=== PATIENT | female | born 1985 | race Caucasian/White ===

== ENCOUNTER 2019-01-11 08:52 | Outpatient (CLI) | payer BC, SELFPAY ==
[2019-01-11 10:26] LABS: HCG Quant, Pregnancy 327 mIU/mL (1-3)
== END 2019-01-11 09:12 ==
PROVIDERS: PCP Neuromusculoskeletal Medicine & OMM; Visit Provider Advanced Practice Midwife
DX: O20.0 Threatened abortion (principal); Z01.84 Encounter for antibody response examination
CPT/HCPCS: 36415; 86850; 86900; 86901; 84702

== ENCOUNTER 2019-01-17 10:06 | Outpatient (CLI) | payer BC, SELFPAY ==
[2019-01-17 11:32] LABS: HCG Quant, Pregnancy 1215 mIU/mL (1-3)
== END 2019-01-17 10:26 ==
PROVIDERS: PCP Neuromusculoskeletal Medicine & OMM; Visit Provider Obstetrics & Gynecology
DX: O20.0 Threatened abortion (principal)
CPT/HCPCS: 36415; 84702

== ENCOUNTER 2019-01-19 00:38 | Outpatient (CLI) | payer BC, SELFPAY ==
--- NOTE | 2019-01-19 12:29 | DI.US_ITS ---
SYMPTOMS/DIAGNOSIS: POSITIVE HCG, POSITIVE TEST, BLEEDING, NOW NOTHING IN UTERUS, THREATENED , Z32.01. O20.0 OBSTETRICAL ULTRASOUND: Many abnormalities cannot be diagnosed. A normal exam does not exclude a congenital anomaly. HISTORY: Date of exam: 01/19/19 LMP: 12/03/18 EDC by LMP: 09/09/19 Previous study: [facility] 6+5 wks Range: 5+5 to 7+5 EDC by prior us: Findings: No IUP Prior surgery/: BIOMETRY: PELVIC MEASUREMENTS: CRL: mm wks Uterus: 8.7 x 3.9 x 4.9 cm Yolk sac: mm wks Gest sac: mm wks Rt Ovary: 2.9 x 2.4 x 2.2 cm BPD: mm wks HC: mm wks Lt Ovary: 3.8 x 1.9 x 1.3 cm AC: mm wks FL: mm wks Comments: 1.7 x 1.6 x 1.7 cm right ovarian cyst, ? corpus luteum Composite Age (US): wks EDC by US: Heart Rate: BPM Amniotic Fluid: [place] Normal Polyhydramnios Movement noted: Yes No Comments: No evidence of intra/extra-uterine . Mild amount of fluid within endometrium. The uterus measures 8.7 cm long x 3.9 cm AP x 4.9 cm transverse. There is a very small amount of fluid within the endometrial canal. No focal fluid collection is seen to suggest a gestational sac at this time. The left ovary measures 3.8 x 1.9 x 1.3 cm. There is normal blood flow. No evidence of torsion. No evidence of a left ovarian mass. The right ovary measures 2.9 x 2.4 x 2.2 cm. There is a 1.7 x 1.6 x 1.7 cm simple cyst on the right ovary. No internal solid component or blood flow is seen in the cyst. There is normal blood flow to the right ovary. No evidence of torsion. No free pelvic fluid, adnexal mass or hydronephrosis is identified. IMPRESSION: No definite evidence of an intrauterine gestation. Follow-up beta- hCG levels are recommended. If clinically appropriate, repeat obstetrical ultrasound may be obtained.
== END 2019-01-19 00:58 ==
PROVIDERS: PCP Neuromusculoskeletal Medicine & OMM; Visit Provider Obstetrics & Gynecology Gynecology
DX: O20.0 Threatened abortion (principal); Z32.01 Encounter for pregnancy test, result positive; N83.291 Other ovarian cyst, right side
CPT/HCPCS: 76801

== ENCOUNTER 2019-01-20 13:48 | Outpatient (CLI) | payer BC, SELFPAY ==
[2019-01-20 15:36] LABS: HCG Quant, Pregnancy 1916 mIU/mL (1-3)
== END 2019-01-20 14:08 ==
PROVIDERS: PCP Neuromusculoskeletal Medicine & OMM; Visit Provider Obstetrics & Gynecology
DX: O20.0 Threatened abortion (principal)
CPT/HCPCS: 36415; 84702

== ENCOUNTER 2019-01-20 13:57 | Outpatient (CLI) | payer BC, SELFPAY | END 2019-01-20 14:17 | PROVIDERS: PCP Neuromusculoskeletal Medicine & OMM; Visit Provider Obstetrics & Gynecology Gynecology | DX: Z01.818 Encounter for other preprocedural examination (principal) ==

== ENCOUNTER 2019-01-21 06:21 | Day surgery (SDC) | payer BC, SELFPAY ==
[2019-01-20 14:07] VITALS: BP 104/69; PULSE 74; RESP 18; TEMP 37; O2SAT 99
[2019-01-21] VITALS (7 sets, daily range): BP systolic 99–114; BP diastolic 50–66; PULSE 67–81; RESP 14–22; TEMP 35.8–36.5; O2SAT 95–100
[2019-01-21] MEDS: Lactated Ringers 1,000 ML 80 ML IV (07:06)
[2019-01-21 07:14] LABS: HCT 39.6 % (36.0-46.0); HGB 12.7 g/dL (12.0-15.5); Mean Corp. HGB Concentration 32.1 g/dL (32.0-36.0); Mean Corpuscular Hemoglobin 28.7 pg (27.0-33.0); Mean Corpuscular Volume 89.6 fL (80-95); Platelet Count 178 x1000/uL (130-400); RBC 4.42 m/cumm (4.00-5.20); RBC Distribution Width 12.2 % (11.7-14.6); White Blood Cell Count 5.79 k/cumm (4.4-10.8)
[2019-01-21] MEDS: Bupivacaine 0.25% Pres-Free 30 ML VIAL (07:55)
--- NOTE | 2019-01-21 08:00 | POCSPONT_PTH ---
PATIENT: NGUYEN SANDHU LOC: [facility] U#:[id number] AGE/SX: 33/F ROOM: RE01/21/[address]: Ximena Rose : 1985 BED: DIS: 01/21/2019 SPEC #: [id number] RECD: 01/21/19 12:53 STATUS: FARIDA RERasta #: [id number] ZIYAD: 01/21/19 08:[address]: Ximena Rose DEPT: Surgical Specimen RECD BY: Thao Lugo ENTERED: 01/21/19 12:55 SP TYPE: POCSPONT OT DR: Gaetano Welch Tissues: 1 - ,SPONTANEOUS Procedures: GROSS AND MICRO LEVEL 4 Comments: [id number] (PLEASE GUTIERREZ)
[2019-01-21] MEDS: Silver Nitrate Stick 1 EACH (08:02)
[2019-01-21] MEDS: fentaNYL 100 MCG/2 ML VIAL IVP ×2 (08:30→08:40)
--- NOTE | 2019-01-21 08:31 | W.PM.DSUDISC ---
Discharge Plan Disposition Patient Disposition: HOME Condition: Good Discharge Details Reason For Visit: ASIM Attending Provider: Ximena Rose Primary Care Provider: Gaetano Welch [place] Meds and New Rx's Prescriptions: No Action doxycycline hyclate 100 mg capsule 100 mg PO DAILY Qty: 3 RF: 0 Five-Thirty 1.5 billion cell capsule 1 cap PO DAILY RF: 0 vitamin [id number] acid 1,000-400 mcg tablet, sublingual 1 tab SL DAILY RF: 0 mesalamine [Lialda] 1.2 GM tablet,delayed release (DR/EC) 2 tab PO BID RF: 0 Discharge Instructions Stand Alone Forms: DSU Post Gynecology Surgery Activity:: Activity as Tolerated Diet:: As Tolerated Discharge Orders Discharge Orders: Discharge Order (Routine); Ordered 01/21/19 Ordered By: Ximena Rose
--- NOTE | 2019-01-21 09:38 | W.PM.OP ---
Date of service: 01/21/19 Time of Service: 09:38 Operative Note DATE OF PROCEDURE: 01/21/19 PRE-OP DIAGNOSIS: Incomplete at 7 weeks POST-OP DIAGNOSIS: same PROCEDURE: Cervical dilatation and suction evacuation of uterine contents ANESTHESIA: MAC (With laryngeal mask anesthesia) ESTIMATED BLOOD LOSS: 5 COMPLICATIONS: None Patient was transported to: PACU Patient's condition: stable Indications: 33-year-old female with EGA 7w1d by LMP 12/03/18 who developed episode of uterine bleeding ~ 1 week ago. Serial hCGs have demonstrated an abnormal rise this past week. No IUP, no ectopic noted on OB u/s 01/19/19. Pt was counseled regarding options for care and requested that a D&C be performed. Findings: Uterus sounded to 9 cm. Scant amount of tissue pain from the uterine cavity. Procedure Description: Patient was taken the operating room where she was placed in the dorsal supine position and laryngeal mask anesthesia was administered without difficulty. She was then placed in the dorsal lithotomy position in yellowfin stirrups prepped and draped in the usual sterile fashion. A surgical timeout was performed. SCDs were in place. [place] speculum was placed in the vagina the anterior lip of the cervix was infiltrated with quarter percent Marcaine without epinephrine single-tooth tenaculum was applied to the anterior lip of the cervix. Paracervical block was performed using quarter percent Marcaine with approximately 5 cc injected into the 4 and 8:00 cervical vaginal interface respectively. Cervix was then sequentially dilated to a maximum of 20 Foster and a 8 mm curved suction cannula was inserted to the uterine cavity attached to suction in all 4 quadrants of the uterine cavity were sequentially suction curetted. After completion of the suction curettage a banjo curette was then introduced into the uterine cavity and all 4 quadrants of the uterine cavity where curetted with a gritty texture obtained and minimal tissue returned. Final pass with the suction cannula was performed with minimal tissue returned. Tenaculum was removed from the anterior lip of the cervix tenaculum site was treated with silver nitrate. Speculum was removed and the patient was then placed in the dorsal supine position awakened extubated and transported to recovery area in stable condition all sponge lap and needle counts were correct x2.
== END 2019-01-21 10:27 | disposition home or self-care (01) ==
PROVIDERS: PCP Neuromusculoskeletal Medicine & OMM; Visit Provider Obstetrics & Gynecology Gynecology
PROC: (CPT 59841; principal; 2019-01-21 07:30)
DX: O03.4 Incomplete spontaneous abortion without complication (principal)
CPT/HCPCS: 59812; 36415; 85027; 86850; 86900; 86901; 88305; J1100; J1885; J2250; J2405; J3010

== ENCOUNTER 2019-01-31 09:25 | Outpatient (CLI) | payer BC, SELFPAY ==
[2019-01-31 10:39] LABS: HCG Quant, Pregnancy 10 mIU/mL (1-3)
== END 2019-01-31 09:45 ==
PROVIDERS: Obstetrics & Gynecology; PCP Neuromusculoskeletal Medicine & OMM; Visit Provider Obstetrics & Gynecology Gynecology
DX: Z32.01 Encounter for pregnancy test, result positive (principal)
CPT/HCPCS: 84702

== ENCOUNTER 2019-11-12 12:53 | Outpatient (REF) | payer BC, SELFPAY ==
--- NOTE | 2019-11-12 11:30 | PAPFT_PTH ---
PATIENT: NGUYEN SANDHU LOC: [facility] U#:[id number] AGE/SX: 33/F ROOM: RE11/12/[address]: Rogelio Tomlinson MD : 1985 BED: DIS: 11/12/2019 SPEC #: [id number] RECD: 11/12/19 13:04 STATUS: FARIDA ELIZABETH #: [id number] ZIYAD: 11/12/19 11:[address]: Rogelio Tomlinson DEPT: [facility] Cytology RECD BY: Thao Lugo ENTERED: 11/12/19 13:04 SP TYPE: PAPFT OTHR DR: Gaetano Welch Tissues: 1 - CX/ENDOCX FOR PAP SMEARS Procedures: PAP THIN PREP/UVM Screening HPV DNA PROBE Comments: [id number]
== END 2019-11-12 13:13 ==
LOC: LBN 12:53
PROVIDERS: PCP Neuromusculoskeletal Medicine & OMM; Visit Provider Obstetrics & Gynecology
DX: Z12.4 Encounter for screening for malignant neoplasm of cervix (principal); Z11.51 Encounter for screening for human papillomavirus (HPV)
CPT/HCPCS: 88142; 87624

== ENCOUNTER 2020-05-14 15:20 | Emergency (ER) | payer BC, SELFPAY ==
[2020-05-14] VITALS (23 sets, daily range): BP systolic 89–110; BP diastolic 60–76; PULSE 50–71; RESP 13–27; TEMP 36.4; O2SAT 97–100
--- NOTE | 2020-05-14 15:15 | RT.EKG_ITS ---
APPROVED REPORT Exam: Resting ECG Patient Location: E HR:64 bpm ECG Measurements Heart Rate 64 AXIS [place] 123 P 3 QRSd 81 QRS 63 QT 410 T 35 QTc 424 Conclusion Sinus rhythm...normal P axis, V-rate 60- 99 Probable inferior infarct, old...Q>35mS, II III aVF Anterolateral Q wave, probably normal for age...Q >35mS, age<31 male, <40 female. Q waves in II, III, aVF, V3-6. Suspect early replorization. No STEMI.
--- NOTE | 2020-05-14 15:36 | ED.GENADUL_ITS ---
Discharge Plan Disposition Patient Disposition: HOME Condition: Stable Discharge Details Chief Complaint: Chest Pain Clinical Impression: Chest pain Primary Care Provider: Gaetano Welch ED Provider: Amanda Kendall Home Meds and New Rx's Prescriptions: No Action Mirena 20 mcg/24 hours (5 yrs) 52 mg Intrauterine Device INTRAUTERINE RF: 0 Discharge Instructions Instructions: Chest Pain (ED) Additional Instructions: You have elected to leave the emergency department prior to the fall recommended evaluation. May return to emergency department anytime if you change your mind. Please return immediately to the emergency department if you develop any new or worsening symptoms, if your condition does not improve as expected, or if you become otherwise concerned. It is extremely important that you call soon as possible to make an appointment to be seen in follow-up for this visit by your primary care doctor. Referrals: Gaetano Welch [Primary Care Provider] - Discharge Data Discharge Date/Time-TO BE ENTERED AT DEPARTURE: 05/14/20 17:59 Medical Decision Making <Dianelys Burns - Last Filed: 05/17/20 08:22> 34-year-old female presents with left-sided chest pressure and pain which radiates into her back and left arm. This lasted less than 10 minutes [place]. Had a similar episode approximately 2 weeks ago which did not last very long. Pain is reproducible with palpation, gets worse with deep breathing, and movement. I do suspect at this time that this is noncardiac type pain but will rule out cardiac origin. EKG was reviewed by Federica Vincent MD ER attending, please see her official report and read. Informed by RN the patient's blood pressure is 103 systolic will hold off on nitroglycerin at this time. Patient given 324 mg of chewable aspirin. Work-up ordered including EKG, CBC, CMP, serial troponins, urine test, chest CT PE protocol. This time expected disposition is discharge home pending negative work-up. There is to be handed over to oncoming provider Amanda Kendall MD pending labs and PT chest, discussed case in details with her, verbalized understanding. At the time of this dictation patient was hemodynamically stable. <Amanda Kendall MD - Last Filed: 05/14/20 23:01> Patient signed out to me by Esther Burns at time of shift change with CT pending. Katie Briggs is a 44-year-old woman with a history of ulcerative colitis in remission and off medication for 1 year who presented to the emergency department for sharp chest pain. Patient reports that she was driving to a playground with her son, when she felt onset of sharp pain just lateral to her left sternal border. Patient reports that pain worsened over time, radiated to her left shoulder. She also began to feel some tingling in her left hand. Patient reports that pain is worse with internal/external rotation of the left shoulder. Nonexertional, nonpleuritic. Patient denies history of similar pain. Patient reports that pain improved significantly upon arriving in the emergency department, she now classifies it as 2/10. Patient reports that she has not noticed any symptoms during exertion recently. She denies any other pain, fever, shortness of breath, cough, vomiting, diarrhea, numbness, localized weakness. Previously in her usual state of health. No recent illness, has been eating and drinking as usual. No first-degree relatives with coronary artery disease. Physical exam is benign, normal work of breathing, regular rate and rhythm. Concern for likely musculoskeletal pain, possible pulmonary embolism. Doubt acute coronary syndrome. Exam/history is not consistent with acute aortic pathology, sepsis. Awaiting labs, CT chest to rule out PE. CT negative. Initial troponin okay. EKG shows normal sinus rhythm, no STEMI, nondiagnostic EKG. Patient reporting no chest pain unless she moves her left shoulder when she again has sharp pain at the left sternal border. Denies any other pain. Plan for repeat troponin, repeat EKG. Patient initially amenable to repeat EKG and repeat troponin, however she then stated to me that her son is being cared for by a neighbor and she would like to leave as soon as possible. I did offer for patient to have EKG immediately and/or troponin draw at 3 hours with subsequent discharge and call back for positive troponin. Patient declines both EKG and wait for troponin draw. I had a lengthy discussion with the patient regarding risks of leaving without full evaluation including or permanent disability, patient verbalized understanding and continued to refuse further evaluation. Outpatient stress test ordered. I had a lengthy discussion with Patient regarding return to emergency department precautions, home care, that she may return to the emergency department anytime should she change her mind, and importance of outpatient follow-up. Pt verbalizes understanding of the plan and is amenable. Patient discharged to home with clear plan for outpatient follow-up. All questions were answered. Disposition decision was made weighing the risks and benefits of hospitalization versus outpatient treatment, the risk for further decompensation, and the patient's wishes. Just prior to discharge, hypotensive blood pressure 89/76 recorded, I discussed this with nurse who stated that blood pressure cuff was not on the patient at that time, normal blood pressure was subsequently recorded with cuff on patient. Patient left the emergency department without further incident. Medical Records Medical records reviewed: Yes I reviewed the patient's medical records. Imaging Data Radiologic Study: Attestation: I personally reviewed and interpreted this imaging study as follows: Radiologist's impression: Exam(s) a CT:CT chest PE CTA EXAM: CT CHEST PE CTA CLINICAL HISTORY: Chest pain, R/O PE. TECHNIQUE: Imaging Protocol: Axial CT angiography was performed with multi- slice acquisition and multi-planar and/or 3D reconstructions. CONTRAST MATERIAL: Intravenous: Omnipaque 350 Contrast volume:structured data in ml COMPARISON: CT ABD PELVIS WITH CONTRAST from 02/06/2018 FINDINGS: CT angiography of the chest was performed with intravenous infusion of 100 cc of Omnipaque 350. The lungs are clear. No pleural effusion. Tracheobronchial tree appears intact. No evidence of pulmonary embolic disease. Thoracic aorta is of normal, no thoracic aortic aneurysm or dissection, major branch vessels appear intact. No mediastinal or hilar adenopathy. Images obtained through the upper abdomen show unremarkable appearance of the visualized portions of the liver, spleen, pancreas, adrenals, and kidneys. IMPRESSION: Negative CT angiogram of the chest. No evidence of pulmonary embolic disease. Lab Data Lab results reviewed: Yes I reviewed the patient's lab results. Labs: Laboratory Tests Range/Units 05/14/20 05/14/20 05/14/20 15:34 15:40 15:40 WBC (4.4-10.8) 10^3/uL 6.80 RBC (3.93-5.22) 10^6/uL 4.61 Hgb (11.2-15.7) g/dL 13.7 Hct (36.0-46.0) % 40.7 MCV (80-95) fL 88.3 MCH (27.0-33.0) pg 29.7 MCHC (32.0-36.0) % 33.7 RDW (11.7-14.6) % 11.9 Plt Count (130-400) 10^3/uL 180 MPV (8.0-11.0) fL 11.5 H Immature Gran % 0.1 Neutrophils % 50.2 Lymphocytes % 40.0 Monocytes % 6.6 Eosinophils % 2.5 Basophils % 0.6 Nucleated RBC % % 0 Absolute Neutrophils (1.2-6.7) 10^3/uL 3.41 Absolute Lymphocytes (1.2-3.4) 10^3/uL 2.72 Absolute Monocytes (0.1-0.8) 10^3/uL 0.45 Absolute Eosinophils (0.0-0.7) 10^3/uL 0.17 Absolute Basophils (0.0-0.2) 10^3/uL 0.04 D-Dimer Cancelled Sodium (136-145) mmol/L 139 Potassium (3.5-5.1) mmol/L 3.9 Chloride (98-107) mmol/L 104 Carbon Dioxide (21.0-32.0) mmol/L 28.0 Anion Gap (3-11) mmol/L 7.0 BUN (7-18) mg/dL 13 Creatinine (0.55-1.02) mg/dL 0.84 Estimated GFR/1.73 m2 (mL/min/1.73m2) >= 60.00 Glucose (74-106) mg/dL 91 Calcium (8.5-10.1) mg/dL 9.1 Magnesium (1.8-2.4) mg/dL 1.9 Total Bilirubin (0.2-1.0) mg/dL 0.6 AST (15-37) U/L 14 L ALT (14-59) U/L 22 Alkaline Phosphatase (46-116) U/L 59 Troponin I (<0.06) ng/mL < 0.05 Total Protein (6.4-8.2) g/dL 7.7 Albumin (3.4-5.0) g/dL 4.1 Range/Units 05/14/20 18:34 WBC (4.4-10.8) 10^3/uL RBC (3.93-5.22) 10^6/uL Hgb (11.2-15.7) g/dL Hct (36.0-46.0) % MCV (80-95) fL MCH (27.0-33.0) pg MCHC (32.0-36.0) % RDW (11.7-14.6) % Plt Count (130-400) 10^3/uL MPV (8.0-11.0) fL Immature Gran % Neutrophils % Lymphocytes % Monocytes % Eosinophils % Basophils % Nucleated RBC % % Absolute Neutrophils (1.2-6.7) 10^3/uL Absolute Lymphocytes (1.2-3.4) 10^3/uL Absolute Monocytes (0.1-0.8) 10^3/uL Absolute Eosinophils (0.0-0.7) 10^3/uL Absolute Basophils (0.0-0.2) 10^3/uL D-Dimer Sodium (136-145) mmol/L Potassium (3.5-5.1) mmol/L Chloride (98-107) mmol/L Carbon Dioxide (21.0-32.0) mmol/L Anion Gap (3-11) mmol/L BUN (7-18) mg/dL Creatinine (0.55-1.02) mg/dL Estimated GFR/1.73 m2 (mL/min/1.73m2) Glucose (74-106) mg/dL Calcium (8.5-10.1) mg/dL Magnesium (1.8-2.4) mg/dL Total Bilirubin (0.2-1.0) mg/dL AST (15-37) U/L ALT (14-59) U/L Alkaline Phosphatase (46-116) U/L Troponin I (<0.06) ng/mL Cancelled Total Protein (6.4-8.2) g/dL Albumin (3.4-5.0) g/dL HPI <Dianelys Burns - Last Filed: 05/17/20 08:22> General Mode of arrival: ambulatory . Date/Time Provider Initiated Documentation: 05/14/20 15:21 . Limitations to Documentation: no limitations . Information obtained by: patient . HPI Narrative: 34-year-old female presents the ER with left-sided chest pain which radiates down to her left arm. She reports was at the park with her son at approximately 1400 when began with this left-sided chest pressure that she reports is heaviness radiating down into her arm and had pressure to her middle finger. Also radiates into her back. She reports that this sensation caused her to have to sit down. This lasted for approximately less than 10 minutes. Upon initial exam she rates the sensation a 2 or 3 out of 10. Pain gets worse with deep breathing. Is reproducible with palpation. Denies nausea, diaphoresis, abdominal pain or diarrhea denies any fever or chills. Denies cough. She does not have any significant cardiac history. She is on the Mirena IUD for control. She has never been a smoker, does drink 1-2 drinks of alcohol a week. No significant family cardiac history. Related Data Home Medications Medication Instructions Recorded Confirmed levonorgestrel [Mirena] INTRAUTERINE 05/14/20 Allergies Allergy/AdvReac Type Severity Reaction Status Date / Time codeine Allergy Severe Hives Verified 05/14/20 15:35 General Stated Complaint: Chest Pain ALEXUS: 2 Review of Systems <Dianelys Burns - Last Filed: 05/17/20 08:22> Narrative: Constitutional: Negative for weight loss, alert and oriented, well groomed, normal body habitus, appears comfortable. HEENT: Denies trauma, headaches, blurry vision, nasal discharge, sore throat, trouble swallowing. Chest: Denies palpitations, irregular rhythm, hypertension. Positive left- sided chest pressure which radiates down her left arm which began approximately 1400. Respiratory: Denies Shortness of breath, cough, hemoptysis. GI: Denies abdominal pain, nausea, vomiting, diarrhea, constipation. : Denies dysuria, hematuria, flank pain, rectal bleeding. Neuro: Denies dizziness, blurry vision, weakness, syncope, headache or facial numbness. Hematologic: Denies easy bruising, intolerance to heat or cold, hair loss. PFSH <Dianelys Burns - Last Filed: 05/17/20 08:22> Medical History Positive test (Acute) Threatened (Acute) LMP 12/03/18. + UPT 01/05/19. Heavy bleeding 01/11-01/13. hCG 01/1159=098, 01/1307=847. 01/14/19 Thickened ES. No IUP, nl adnexa. Plan repeat hCG 01/16 and u/s week of 01/18 with f/u. Ulcerative colitis (Acute 09/27/14) Surgical History History of colonoscopy (Chronic) Reduction mammoplasty (Resolved ~2006) Family History Father Heart disease mgf Diabetes Social History Smoking/Tobacco Use Status: Never Alcohol Intake: current Alcohol Intake frequency: a few times a week Alcohol type: wine Substance use type: does not use Details: September 2018 Household members: spouse, children and other Details: Mala Reyes, son 2.5yo Number of Children: 1 Do you feel safe at home: Yes Do you feel safe in your relationship?: Yes History History 2 Para 1 Hx # Term Pregnancies 1 Multiple births Hx # Pregnancies Ectopic pregnancies AB induced Hx Number of Living Children 1 AB spontaneous Exam <Dianelys Burns - Last Filed: 05/17/20 08:22> Narrative Exam Narrative: Constitutional: Alert and oriented x3. Appears stated age. Normal body habitus. Head: Normocephalic, no trauma. Eyes: Pupils PERRLA, Red reflex noted, EOM's intact. Eyelids symmetrical without lesions, discharge, or swelling. ENT: Bilateral TM's WNL, External ear normal to inspection, no mastoid TTP, swelling, or erythema, Nasal turbinates WNL, no nasal discharge. Normal dentition, Posterior pharynx WNL, no exudate. Chest: RRR, Normal S1, S2, distal pulses intact. Chest pain is reproducible with palpation to left midsternal. Chest pain gets worse with deep breathing. Resp: Lungs clear to auscultation bilaterally, no wheezes, rales, or rhonchi. Musculoskeletal: Normal gait, 5/5 strength to all four extremities. Skin: No suspicious rashes or lesions. Capillary refill less than 2 sec. Neurologic: Cranial nerves II-XII intact. Alert and oriented x 3. DTR's intact. Hematologic/Lymphatic: No ecchymosis, no lymphadenopathy. Course <Dianelys Burns - Last Filed: 05/17/20 08:22> Vital Signs Vital signs: Vital Signs Temperature 36.4 C L 05/14/20 15:26 Pulse 68 05/14/20 15:26 Respiratory Rate 16 05/14/20 15:26 Blood Pressure 103/61 05/14/20 15:26 Pulse Oximetry 97 05/14/20 15:26 Temperature 36.4 C L 05/14/20 15:26 Temperature Source Skin 05/14/20 15:26 Pulse 68 05/14/20 15:26 Respiratory Rate 16 05/14/20 15:26 Respiratory Effort Non-Labored 05/14/20 15:26 Blood Pressure 103/61 05/14/20 15:26 Blood Pressure Position Supine 05/14/20 15:26 Pulse Oximetry 97 05/14/20 15:26 Oxygen Delivery Method Room Air 05/14/20 15:26 Oxygen Flow Rate 0 05/14/20 15:26 Pain Level 3 05/14/20 15:26 Sign Out <Dianelys Burns - Last Filed: 05/17/20 08:22> Sign Out Data: Sign Out Comment: Pending labs and CT Chest Last updated by Dianelys Burns at 05/14/20 16:03
[2020-05-14 15:50] LABS: Abs Immature Grans 0.01 10^3/uL (0.0-0.06); Absolute Basophil Count 0.04 10^3/uL (0.0-0.2); Absolute Eosinophil Count 0.17 10^3/uL (0.0-0.7); Absolute Lymphocyte Count 2.72 10^3/uL (1.2-3.4); Absolute Monocyte Count 0.45 10^3/uL (0.1-0.8); Absolute Neutrophil Count 3.41 10^3/uL (1.2-6.7); Basophils % 0.6; Eosinophils % 2.5; HCT 40.7 % (36.0-46.0); HGB 13.7 g/dL (11.2-15.7); Immature Grans % 0.1; MCH 29.7 pg (27.0-33.0); MCHC 33.7 % (32.0-36.0); MCV 88.3 fL (80-95); MPV 11.5 fL (8.0-11.0); Monocytes % 6.6; Neutrophils % 50.2; Nucleated RBC 0 %; Platelet Count 180 10^3/uL (130-400); RBC 4.61 10^6/uL (3.93-5.22); RDW 11.9 % (11.7-14.6); RDW-SD 38.5 fL
[2020-05-14] MEDS: Aspirin 81 MG CHEW 324 MG CH (15:59)
[2020-05-14 16:04] LABS: ALT 22 U/L (14-59); AST 14 U/L (15-37); Albumin 4.1 g/dL (3.4-5.0); Alkaline Phosphatase 59 U/L (46-116); BUN 13 mg/dL (7-18); Bilirubin, Total 0.6 mg/dL (0.2-1.0); CREATININE 0.84 mg/dL (0.55-1.02); Calcium 9.1 mg/dL (8.5-10.1); Chloride 104 mmol/L (98-107); Glucose 91 mg/dL (74-106); Magnesium 1.9 mg/dL (1.8-2.4); Potassium 3.9 mmol/L (3.5-5.1); Sodium 139 mmol/L (136-145); Total Protein 7.7 g/dL (6.4-8.2); Troponin I < 0.05 ng/mL (<0.06)
--- NOTE | 2020-05-14 16:23 | DI.CT_ITS ---
EXAM: CT CHEST PE CTA CLINICAL HISTORY: Chest pain, R/O PE. TECHNIQUE: Imaging Protocol: Axial CT angiography was performed with multi-slice acquisition and mu lti-planar and/or 3D reconstructions. CONTRAST MATERIAL: Intravenous: Omnipaque 350 Contrast volume:structured data in ml COMPARISON: CT ABD PELVIS WITH CONTRAST from 02/06/2018 FINDINGS: CT angiography of the chest was performed with intravenous infusion of 100 cc of Omnipaque 350. The lungs are clear. No pleural effusion. Tracheobronchial tree appears intact. No evidence of pulmonary embolic disease. Thoracic aorta is of normal, no thoracic aortic aneurysm or dissection, major branch vessels appear intact. No mediastinal or hilar adenopathy. Images obtained through the upper abdomen show unremarkable appearance of the visualized portions of the liver, spleen, pancreas, adrenals, and kidneys. IMPRESSION: Negative CT angiogram of the chest. No evidence of pulmonary embolic disease. RADIATION DOSE DELIVERED: 502.7mGy.cm Total DLP 502.7mGy.cm Total DLP DATA REPOSITORY: All CT scans at this facility are submitted to the National Radiology Data Registry (NRDR) Dose Index Registry (DIR) with the [employer] (ACR). RADIATION OPTIMIZATION: All CT scans at this facility use at least one of these dose optimization te chniques: automated exposure control; mA and/or kV adjustment per patient size (includes targeted exa ms where dose is matched to clinical indication); or iterative reconstruction.
[2020-05-14] MEDS: Normal Saline - Diluent 50 ML VIAL IV (16:26)
[2020-05-14] MEDS: Normal Saline Flush 10 ML SYR IVP (16:26)
[2020-05-14] MEDS: Omnipaque 350 MG/ML 100 ML BTL IJ (16:26)
== END 2020-05-14 17:59 | disposition home or self-care (01) ==
PROVIDERS: Registered Nurse Emergency; Emergency Provider Student in an Organized Health Care Education/Training Program; PCP Neuromusculoskeletal Medicine & OMM
DX: R07.89 Other chest pain (principal)
CPT/HCPCS: 71275; 80053; 81025; 93005; 99285; 83735; 84484; 85025; 85379; 93010; 99284; J3490

== ENCOUNTER 2020-05-16 00:02 | Outpatient (CLI) | payer BC, SELFPAY ==
--- NOTE | 2020-05-16 09:00 | ETT_ITS ---
APPROVED REPORT Exam: Exercise Treadmill Patient Location: Out-Patient Room/Bed: Stress Nurse: Maria Guadalupe Allen RN BMI: 29.53 Baseline Rhythm: Sinus Rhythm Indications: Chest Pain Medical History Medical History: No history of CAD Cardiac Medications: none, Allergies: codeine Cardiac Risk Factors: FHX of CAD Pretest Chest Pain Characteristics: Non-exertional Chest pain radiating to back Exercise History: Physically active Lung Sounds: Clear to auscultation Heart Sounds: Regular Stress Test Details Test: Exercise stress testing was performed using a Fuentes protocol. Rest Stress HR Resting HR Supine: 55 bpm Max Heart Rate (APMHR): 185 bpm Resting HR Standin bpm Target HR (85% APMHR): 157 bpm Max HR Achieved: 167 bpm % of APMHR: 90 Recovery HR: 74 bpm HR response to stress: Normal HR response to stress BP Resting BP Supine: 122/80 mmHg Resting BP Standin/76 mmHg Max BP: 146/80 mmHg Recovery BP: 120/68 mmHg BP response to stress: Normal blood pressure response to stress. ECG Resting ECG: Sinus Bradycardia with early repolarization changes Stress ECG: Sinus Tachycardia ST Change: Normal Arrhythmia: VPC's Recovery ECG: Sinus Rhythm Recovery ST Change: Normal Recovery Arrhythmia: VPC Clinical Reason for Termination: Fatigue Stress Symptoms: General Fatigue, Chest pain Exercise duration: 10 min07 sec Highest Stage Reached: Stage 3: 3.4 mph at 14% grade. Exercise capacity: 11.98 METs Functional Capacity: Average Capacity Stress ECG Conclusion 1. The patient exercised for 10 minutes (12 METS). Exercise was stopped due to fatigue and chest joao n. 2. There was no evidence of EKG changes that would suggest ischemia during stress. 3. The Kingston Score ( 10) estimates an annual cardiovascular mortality of 0% and a five year survival o f 96%. Using the Kingston Score there is a low probability of any angiographic coronary disease.
== END 2020-05-16 00:22 ==
PROVIDERS: PCP Neuromusculoskeletal Medicine & OMM; Visit Provider Student in an Organized Health Care Education/Training Program
DX: R07.9 Chest pain, unspecified (principal); Z82.49 Family history of ischemic heart disease and other diseases of the circulatory system
CPT/HCPCS: 93017